=== PATIENT | female | born 1945 | race African-American/Black ===

== ENCOUNTER 2018-06-22 15:18 | Emergency (ER) | payer MEDICARE ==
[~2018-06-22] VITALS: Ht 165.1 cm; Wt 99.8 kg
--- OUTSIDE RECORDS SUMMARY | 2018-06-22 15:21 | XMS REPORT | Clinical Summary ---
Author Author ERIC [facility] Address Unknown Phone Unavailable Care Team Providers Care Natural Resources Professor Name Role Phone Sharpless PCP Allergies No Known Allergies Medications End Date Status Medication Sig Dispensed Refills Start Date Active sertraline (ZOLOFT) 25 MG Take 25 mg by 0 tablet mouth daily. Active omeprazole (PRILOSEC) 40 Take 40 mg by 0 MG capsule mouth daily. Active aspirin 81 MG EC tablet Take 81 mg by 0 mouth daily. Active folic acid (FOLVITE) 1 MG Take 1 mg by 0 tablet mouth daily. Active cholecalciferol, vitamin Take 1,000 0 D3, 1,000 unit capsule Units by mouth daily. Active Problems Not on file Social History Date Tobacco Use Types Packs/Day Years Used Never Smoker Smokeless Tobacco: Never Used Alcohol Use Drinks/Week oz/Week Comments No Sex Assigned at Date Recorded Not on file Industry Job Start Date Occupation Not on file Not on file Not on file Travel End Travel History Travel Start No recent travel history available. Last Filed Vital Signs Not on file Plan of Treatment Not on file Results Not on fileafter 06/21/2017 Insurance Payer Benefit Subscriber ID Type Phone Address Plan / Group HUMANA - MEDICARE MGD HUMANA xxxxxxxxx [facility] MEDICARE Contracted ADV OTHER-COMMERCIAL GENERIC xxxxxxxxx COMMERCIAL
--- OUTSIDE RECORDS SUMMARY | 2018-06-22 15:21 | XMS REPORT ---
[facility] Address Unknown Phone Unavailable Care Team Providers Care Machine Sneller Name Role Phone Unavailable Unavailable Problems This patient has no known problems. Allergies, Adverse Reactions, Alerts This patient has no known allergies or adverse reactions. Medications This patient has no known medications. Results Test Description Test Time Test Comments Text Results Atomic Results Result Comments RAD, FEMUR, MIN. 2 VIEWS, LEFT 2017-05-23 14:13:00 Reason for exam:->FALLpt fell and landed on her front three days ago, pt denies LOC, pt c/o pain to both groin areas and faceShould this be performed at the bedside?->Yes FINAL REPORT TECHNIQUE: Frontal and lateral radiographs of the left femur dated 05/23/2017 HISTORY: Fall COMPARISON: None. FINDINGS:No fracture or dislocation. Bones are osteopenic. Moderate degenerative changes are seen in the knee. No bone erosion or soft tissue nodule seen. No radiodense foreign body or subcutaneous emphysema. IMPRESSION:No fracture or dislocation. Signed: Vandana Doran Verified Date/Time: 05/23/2017 14:13:11 Reading Location: [facility] Radiology Reading Room , LEG, TIBIA 2017-05-23 14:11:00 Reason for exam:->FALLpt fell and landed on her front three days ago, pt denies LOC, pt c/o pain to both groin areas and faceShould this be performed at the bedside?->Yes FINAL REPORT TECHNIQUE: Frontal and lateral radiographs of both tibias and fibulas dated 05/23/2017 HISTORY: Fall COMPARISON: None. FINDINGS:Right:There is a metallic plate affixed to the lateral cortex of the distal fibula by means of multiple screws. Two wires are seen traversing the medial malleolus. No fracture or dislocation. Bones are osteopenic. Marked degenerative changes are seen in the right knee predominantly in the medial compartment. No bone erosion or soft tissue nodule seen. No radiodense foreign body or subcutaneous emphysema. Left:No fracture or dislocation. Bones are osteopenic. Moderate degenerative changes are seen in the left knee predominantly in the medial compartment. No bone erosion or soft tissue nodule seen. No radiodense foreign body or subcutane ous emphysema. IMPRESSION:No fracture or dislocation in the tibia or fibula bilaterally. Degenerative changes in both knees, right greater than left. Signed: Vandana Doraneport Verified Date/Time: 05/23/2017 14:11:25 Reading Location: [facility] Radiology Reading Room , LEG, TIBIA 2017-05-23 14:11:00 Reason for exam:->FALLpt fell and landed on her front three days ago, pt denies LOC, pt c/o pain to both groin areas and faceShould this be performed at the bedside?->Yes FINAL REPORT TECHNIQUE: Frontal and lateral radiographs of both tibias and fibulas dated 05/23/2017 HISTORY: Fall COMPARISON: None. FINDINGS:Right:There is a metallic plate affixed to the lateral cortex of the distal fibula by means of multiple screws. Two wires are seen traversing the medial malleolus. No fracture or dislocation. Bones are osteopenic. Marked degenerative changes are seen in the right knee predominantly in the medial compartment. No bone erosion or soft tissue nodule seen. No radiodense foreign body or subcutaneous emphysema. Left:No fracture or dislocation. Bones are osteopenic. Moderate degenerative changes are seen in the left knee predominantly in the medial compartment. No bone erosion or soft tissue nodule seen. No radiodense foreign body or subcutane ous emphysema. IMPRESSION:No fracture or dislocation in the tibia or fibula bilaterally. Degenerative changes in both knees, right greater than left. Signed: Vandana Doraneport Verified Date/Time: 05/23/2017 14:11:25 Reading Location: [facility] Radiology Reading Room , PELVIS, 1 OR 2 VIEWS 2017-05-23 14:04:00 Reason for exam:->hip painShould this be performed at the bedside?->Yes FINAL REPORT TECHNIQUE: Frontal radiograph of the pelvis dated 05/23/2017 HISTORY: Hip pain COMPARISON: None. FINDINGS:No fracture or dislocation. Bones are osteopenic. No joint space narrowing in the hips. Degenerative changes of the lower lumbar spine are noted. No bone erosion or soft tissue nodule seen. No radiodense foreign body or subcutaneous emphysema. IMPRESSION:No fracture or dislocation. Signed: Vandana Doran Verified Date/Time: 05/23/2017 14:04:02 Reading Location: [facility] Radiology Reading Room , FEMUR, MIN. 2 VIEWS, RIGHT 2017-05-23 14:02:00 Reason for exam:->FALLpt fell and landed on her front three days ago, pt denies LOC, pt c/o pain to both groin areas and faceShould this be performed at the bedside?->Yes FINAL REPORT TECHNIQUE: Frontal and lateral radiographs of the right femur dated 05/23/2017 HISTORY: Fall COMPARISON: None. FINDINGS:No fracture or dislocation. Bones are normal in density. Marked degenerative changes are seen in the knee. Questionable small suprapatellar joint effusion is visualized. No bone erosion or soft tissue nodule seen. No radiodense foreign body or subc utaneous emphysema. IMPRESSION:No fracture or dislocation. Questionable small subpatellar joint effusion. Marked degenerative changes of the knee. Signed: Vandana Doran Verified Date/Time: 05/23/2017 14:02:18 Reading Location: [facility] Radiology Reading Room
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
[2018-06-22] MEDS ORDERED: MECLIZINE HCL 12.5 MG TAB PO ONE (15:45)
[2018-06-22] MEDS ORDERED: TRAMADOL HCL 50 MG TAB PO ONE (16:00)
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
== END 2018-06-22 18:40 | disposition home or self-care (01) ==
LOC: ER 15:18
DX: S20.219A Contusion of unspecified front wall of thorax, initial encounter (principal); V43.52XA Car driver injured in collision with other type car in traffic accident, initial encounter; Y92.488 Other paved roadways as the place of occurrence of the external cause; I10 Essential (primary) hypertension; H81.12 Benign paroxysmal vertigo, left ear; N63.20 Unspecified lump in the left breast, unspecified quadrant
CPT/HCPCS: 70450; 71046; 99284; J8597